=== PATIENT | female | born 1955 | race Two or more races ===

== ENCOUNTER → 2024-10-07 | Outpatient (CLI) | payer MEDICARE, MEDICAID, SELFPAY ==
--- NOTE | 2024-10-07 09:41 | XR_ITS ---
Examination: PA lateral chest 2 views TECHNIQUE: Upright PA lateral chest 2 views Date and time: October 07, 2024, 0948 hours, comparison July 09, 2023 INDICATIONS: Coughing beginning 10 months ago. FINDINGS: Normal heart size. Lungs are clear. The osseous structures are demineralized IMPRESSION: No pneumonia or pulmonary edema.
[2024-10-07 10:37] LABS: Basophils # (Auto) 0.0 Thou/mm3 (0.0-0.2); Basophils % (Auto) 1 % (0-2.5); Eosinophils # (Auto) 0.1 Thou/mm3 (0.0-0.5); Eosinophils % (Auto) 1 % (0-10); Hematocrit 39.4 % (36.0-46.0); Hemoglobin 13.3 g/dL (12.0-16.0); Immature Granulocytes Auto 0.04 Thou/mm3 (0.00-0.00); Lymphocytes # (Auto) 1.7 Thou/mm3 (1.0-4.8); Lymphocytes % (Auto) 32 % (10-50); Mean Corpuscular HGB Conc 33.8 g/dl (31.0-37.0); Mean Corpuscular Hemoglobin 32.8 pg (25.0-35.0); Mean Corpuscular Volume 97 fL (80-100); Monocytes # (Auto) 0.4 Thou/mm3 (0.0-0.8); Monocytes % (Auto) 7 % (0-12); Neutrophils # (Auto) 3.2 Thou/mm3 (1.8-7.7); Neutrophils % (Auto) 59 % (37-80); Nucleated Red Blood Cell # 0.00 Thou/mm3 (0.00-0.00); Nucleated Red Blood Cell % 0 /100 WBC (0); Platelet Count 234 Thou/mm3 (140-440); RDW Standard Deviation 53.9 fL (36.4-46.3); Red Blood Count 4.05 Miln/mm3 (4.00-5.20); White Blood Count 5.4 Thou/mm3 (3.6-11.0)
[2024-10-07 10:47] LABS: Glucose Estimated Average 123 mg/dL (80-131); Hemoglobin A1C 5.9 % Hgb (4.8-6.0)
[2024-10-07 10:52] LABS: Alanine Aminotransferase 18 U/L (10-49); Albumin, Serum 4.5 gm/dL (3.4-4.8); Albumin/Globulin Ratio 1.7 (1.2-2.2); Alkaline Phosphatase 87 U/L (46-116); Anion Gap 8 (7-16); Aspartate Amino Transferase 18 U/L (0-34); BUN/Creatinine Ratio 11 Ratio (12-20); Bilirubin,Total 0.4 mg/dL (0.3-1.2); Blood Urea Nitrogen 10 mg/dL (9-23); Calcium 10.2 mg/dL (8.3-10.6); Calcium (Corrected) 10.2 mg/dL (8.5-10.1); Carbon Dioxide 27.6 mMol/L (20.0-31.0); Cardiac Risk Estimate 2.7 RATIO (3.7-5.6); Chloride 106 mMol/L (98-107); Cholesterol 183 mg/dL (132-200); Creatinine (Component) 0.9 mg/dL (0.6-1.3); Globulin 2.7 gm/dL (2.3-3.5); Glucose 99 mg/dL (74-106); HDL Cholesterol 68 mg/dL (40-60); LDL Cholesterol,Calculated 95 mg/dL (0-130); Osmolality,Calculated 282 (275-295); Potassium 4.3 mMol/L (3.4-5.1); Sodium 142 mMol/L (136-145); Thyroid Stimulating Hormone 0.59 uIU/mL (0.55-4.78); Total Protein 7.2 gm/dL (5.7-8.2); Triglycerides 98 mg/dL (30-150); eGFR > 60 See Note
== END | disposition home or self-care (01) ==
LOC: CDIM 09:20 → COPL 09:53
PROVIDERS: PCP Physician Assistant; Referring Provider Physician Assistant; Visit Provider Radiology Diagnostic Radiology
DX: R05.9 Cough, unspecified (principal); J45.20 Mild intermittent asthma, uncomplicated; Z00.00 Encounter for general adult medical examination without abnormal findings; I10 Essential (primary) hypertension; J30.9 Allergic rhinitis, unspecified; Z90.5 Acquired absence of kidney
CPT/HCPCS: 36415; 71046; 80053; 80061; 83036; 84443; 85025